=== PATIENT | female | born 1985 | race Caucasian/White ===

== ENCOUNTER 2020-08-28 11:34 | Emergency (ER) | payer MEDICAID ==
[~2020-08-28] VITALS: Ht 190.5 cm; Wt 109.1 kg
[2020-08-28] MEDS ORDERED: EPIN0.3P3 IM (11:56)
[2020-08-28 13:05] VITALS: BP 115/79
== END 2020-08-28 13:10 | disposition home or self-care (01) ==
LOC: ER 11:35
DX: T63.441A Toxic effect of venom of bees, accidental (unintentional), initial encounter (principal); R42 Dizziness and giddiness; J45.909 Unspecified asthma, uncomplicated; Y92.89 Other specified places as the place of occurrence of the external cause
CPT/HCPCS: 99283